=== PATIENT | female | born 1990 | race Caucasian/White ===

== ENCOUNTER 2025-05-10 10:16 | Emergency (ER) | payer OTHER ==
[2025-05-10 10:30] VITALS: BP 109/82; PULSE 70; RESP 18; TEMP 98.2; BMI 31.6
[2025-05-10] MEDS ORDERED: AMOX TR/POT CLAV 875MG/125MG TABLETS (FP) ONE (10:38)
[2025-05-10] MEDS: AMOX TR/POT CLAV 875MG/125MG TABLETS (FP) PO ONE (10:38)
== END 2025-05-10 10:53 | disposition home or self-care (01) ==
LOC: FER 10:16
DX: L03.213 Periorbital cellulitis (principal)
CPT/HCPCS: 99283-25